=== PATIENT | male | born 1965 | race African-American/Black ===

== ENCOUNTER → 2017-08-13 | Outpatient (CLI) | payer MEDICAID ==
--- NOTE | 2017-08-13 17:31 | RADIOLOGY REPORT (SQ) ---
EXAM DESCRIPTION: CHEST 2 VIEWS COMPLETED DATE/TIME: 08/13/2017 5:23 pm REASON FOR STUDY: J20.9 ACUTE BRONCHITIS, UNSPECIFIED J44.9 CHRONIC OBSTRUCTIVE PULMONARY DIS COMPARISON: 02/09/2013 EXAM PARAMETERS: NUMBER OF VIEWS: two views TECHNIQUE: Digital Frontal and Lateral radiographic views of the chest acquired. RADIATION DOSE: NA LIMITATIONS: none FINDINGS: LUNGS AND PLEURA: Pulmonary vascular congestion. No localized infiltrate or pleural effus ion. MEDIASTINUM AND HILAR STRUCTURES: No masses or contour abnormalities. HEART AND VASCULAR STRUCTURES: Borderline cardiomegaly pulmonary vascular congestion but no gema pul monary edema. BONES: No acute findings. HARDWARE: None in the chest. OTHER: No other significant finding. IMPRESSION: Cardiomegaly with pulmonary vascular congestion but no gema CHF. TECHNICAL DOCUMENTATION: JOB ID: [id number] [employer]- All Rights Reserved Reading location - IP/workstation name: [email or web address]
== END ==
LOC: RAD 16:54
PROVIDERS: ATTEND Nurse Practitioner Family
DX: J20.9 Acute bronchitis, unspecified (principal)
CPT/HCPCS: 71046

== ENCOUNTER 2018-03-30 22:12 | Emergency (ER) | payer MEDICAID ==
[2018-03-30 22:48] LABS: ABSOLUTE EOSINOPHILS # (AUTO) 0.1 10^3/uL (0.0-0.6); ABSOLUTE LYMPHOCYTES (AUTO) 2.2 10^3/uL (0.5-4.7); ABSOLUTE MONOCYTES (AUTO) 0.6 10^3/uL (0.1-1.4); ABSOLUTE NEUT (AUTO) 2.9 10^3/uL (1.7-8.2); BASOPHILS % (AUTO) 0.2 % (0-2); EOSINOPHILS % (AUTO) 2.1 % (0-6); HEMATOCRIT 44.9 % (37.9-51.0); HEMOGLOBIN 14.9 g/dL (13.5-17.0); LYMPHOCYTES % (AUTO) 37.5 % (13-45); MEAN CORPUSCULAR HGB CONC 33.2 g/dL (32.0-36.0); MEAN CORPUSCULAR VOLUME 87 fl (80-97); MONOCYTES % (AUTO) 10.2 % (3-13); PLATELET COUNT 184 10^3/uL (150-450); RED BLOOD COUNT 5.14 10^6/uL (4.35-5.55); RED CELL DISTRIBUTION WIDTH 13.7 % (11.5-14.0); TOTAL CELLS COUNTED % (AUTO) 100 %; WHITE BLOOD COUNT 5.8 10^3/uL (4.0-10.5)
[2018-03-30] MEDS ORDERED: HYDRALAZINE HCL INJ/PF 20 MG/1 ML SDV ONE (22:49)
[2018-03-30 22:50] LABS: INTERNATIONAL RATION (INR) 1.05; PROTHROMBIN TIME 14.3 SEC (11.4-15.4)
[2018-03-30] MEDS ORDERED: ALTEPLASE INJ 100 MG VIAL ONE (22:50)
[2018-03-30 22:59] LABS: ALANINE AMINOTRANSFERASE 26 U/L (21-72); ALBUMIN 4.2 g/dL (3.5-5.0); ALKALINE PHOSPHATASE 143 U/L (38-126); ANION GAP 7 (5-19); ASPARTATE AMINO TRANSFERASE 21 U/L (17-59); BILIRUBIN,DIRECT 0.2 mg/dL (0.0-0.4); BILIRUBIN,TOTAL 1.2 mg/dL (0.2-1.3); BLOOD UREA NITROGEN 6 mg/dL (7-20); CALCIUM 9.4 mg/dL (8.4-10.2); CARBON DIOXIDE 29 mmol/L (22-30); CHLORIDE 101 mmol/L (98-107); GLUCOSE 282 mg/dL (75-110); POTASSIUM 3.7 mmol/L (3.6-5.0); SODIUM 137.1 mmol/L (137-145); TOTAL PROTEIN 7.8 g/dL (6.3-8.2)
--- NOTE | 2018-03-30 23:02 | ER Document Report ---
ED NIH Stroke Scale - NIH Stroke Scale *: 1. NIH scale should be completed with appropriate accompanying assessment tools. *: 2. The NIH should reflect what the patient is capable of doing and should not be coached by the clinician. 1a. Level of Consciousness: 0=Alert;keenly responsive -: 1=Drowsy -: 2=Obtunded -: 3=Coma/unresponsive or reflex to noxious stimuli. 1a. Responses: 0 1b. Orientation Questions: a. What month is it? -: b. How old are you? -: 0=Answers both questions correctly. -: 1=Answers one question correctly or patient is intubated or has orotracheal trauma. -: 2=Answers neither question correctly. 1b. Responses: 0 1c. Response to commands: a. Open and close eyes? -: b. Underpresser Hand and release hand? -: Credit is given despite weakness. Demonstration of task is permitted. Substitute command if hands cannot be used. -: 0=Performs both tasks correctly -: 1=Performs one task correctly -: 2=Performs neither task correctly 1c. Responses: 0 2. Gaze: Establish eye contact and instruct patient to "Follow my finger" -: 0=Normal -: 1=Partial gaze palsy. Gaze is abnormal in one or both eyes, but where forced deviation or total gaze paresis is not present. -: 2=Forced deviation or total gaze paresis. 2. Responses: 0 3. Visual Rosado: Sees fingers in all four quadrants. -: 0=No visual loss. -: 1=Partial hemianopsia. -: 2=Complete hemianopsia. -: 3=Bilateral hemianopsia (including Cortical blindness) 3. Responses: 0 4. Facial Movement: Instruct patient to: -: a. Show me your teeth -: b. Raise your eyebrows -: c. Close your eyes -: d. Smile -: 0=Normal symmetrical movement -: 1=Minor paralysis (flattened nasolabial fold, asymmetry on smiling). -: 2=Partial paralysis (total or near total paralysis of lower face). -: 3=Complete paralysis of upper and lower face 4. Responses: 3 5. Motor functions (left arm): Alternate sides and extend each arm with palms down (90 degrees if sitting or 45 degrees for supine). -: 0=No drift;limb holds for full 10 seconds. -: 1=Drift; limb holds but drifts down before full 10 seconds, but does not hit bed. -: 2=Some effort against gravity; limb cannot get to or maintain position. -: 3=No effort against gravity; limb falls. -: 4=No movement. -: UN=Amputation, joint fusion, explain in comments. 5. Responses (left arm): 4 5. Motor Functions (right arm): Alternate sides and extend each arm with palms down (90 degrees if sitting or 45 degrees for supine). -: 0=No drift;limb holds for full 10 seconds. -: 1=Drift; limb holds but drifts down before full 10 seconds, but does not hit bed. -: 2=Some effort against gravity; limb cannot get to or maintain position. -: 3=No effort against gravity; limb falls. -: 4=No movement. -: UN=Amputation, joint fusion, explain in comments. 5. Responses (right arm): 0 6. Motor Functions (left leg): With patient lying supine, alternate sides and extend each leg (30 degrees always while supine). -: 0=No drift, leg holds position for full 5 seconds -: 1=Drift; leg falls before full 5 seconds but does not hit bed. -: 2=Some effort against gravity, leg falls to bed but some effort against gravity. -: 3=No effort against gravity, leg falls to bed immediately. -: 4=No movement. -: UN=Amputation, joint fusion; explain in comments. 6. Responses (left leg): 4 6. Motor Functions (right leg): With patient lying supine, alternate sides and extend each leg (30 degrees always while supine). -: 0=No drift, leg holds position for full 5 seconds -: 1=Drift; leg falls before full 5 seconds but does not hit bed. -: 2=Some effort against gravity, leg falls to bed but some effort against gravity. -: 3=No effort against gravity, leg falls to bed immediately. -: 4=No movement. -: UN=Amputation, joint fusion; explain in comments. 6. Responses (right leg): 0 7. Limb Ataxia: With eyes open instruct patient to: -: a. "Touch your finger to your nose". -: b. "Touch your heel to your cervantes" -: 0=Absent -: 1=Present in one limb. -: 2=Present in two limbs. -: UN=Amputation or joint fusion; explain in comments. 7. Responses: 2 8. Sensory: Test sensation using pinprick or noxious stimuli. Test as many body parts as possible. -: 0=Normal;no sensory loss -: 1=Mile to moderate sensory loss (patient feels pin prick but is less sharp on affected side). -: 2=Severe or total sensory loss. 8. Responses: 1 9. Best Language: Instruct patient to: -: a. "Describe what you see in this picture." -: b. "Name the items in this picture." -: c. "Read these sentences." -: 0=No aphasia, normal -: 1=Mild to moderate aphasia. -: 2=Severe aphasia -: 3=Mute, global aphasia, no usable speech or auditory comprehension. 9. Responses: 1 10. Articulation, Dysarthia: Instruct patient to: -: "Read these words" or "Repeat these words" -: 0=Normal -: 1=Mild to moderate; patient may slur some words but can be understood without difficulty. -: 2=Severe; patients speech so slurred as to be unintelligible in the absence of dysphasia. -: UN=Intubated or other physical barrier, explain in comments. 10. Responses: 1 11. Extinction or inattention: 0=No abnormality -: 1= Visual, tactile, auditory, spatial, or personal inattention or extinction to bilateral simulation in one or the sensory modalities. -: 2=Profound kallie-inattention or kallie-inattention to more than one modality; does not recognize own hand. 11. Responses: 0 Total Score: 16
--- NOTE | 2018-03-30 23:06 | RADIOLOGY REPORT (SQ) ---
EXAM DESCRIPTION: XR CHEST 1 VIEW COMPLETED DATE/TME: 03/30/2018 22:13 CLINICAL HISTORY: 53 years, Male, stroke like symptoms EXAM DESCRIPTION: CLINICAL HISTORY: stroke like symptoms COMPARISON: None. FINDINGS: Single view of the chest is submitted. Cardiac silhouette is mildly enlarged. There is mild bilateral pulmonary edema. No focal consolidation. IMPRESSION: Cardiomegaly and mild pulmonary edema suggest CHF.
--- NOTE | 2018-03-30 23:06 | RADIOLOGY REPORT (SQ) ---
EXAM DESCRIPTION: CT HEAD WITHOUT IV CONTRAST COMPLETED DATE/TME: 03/30/2018 22:13 CLINICAL HISTORY: 53 years, Male, altered mental status This exam was performed according to our departmental dose-optimization program which includes automated exposure control, adjustment of the mA and/or kVp according to patient size and/or use of iterative reconstruction technique where applicable. FINDINGS: No acute intracranial hemorrhage, mass effect or midline shift. No extra-axial fluid collections. Ventricles and subarachnoid spaces are preserved. Mckeon-white matter differentiation is preserved. Visualized paranasal sinuses and the mastoid air cells are clear. The skull is intact. IMPRESSION: No acute intracranial hemorrhage.
--- NOTE | 2018-03-30 23:10 | ER Document Report ---
ED General - General Chief Complaint: S/S of Possible Stroke Stated Complaint: STROKE LIKE SYMPTOMS Time Seen by Provider: 03/30/18 22:13 Notes: Patient is a 53-year-old male who had sudden onset of left-sided weakness that began at 8:51 PM when he was playing with his grandchildren. He denies headache. He denies fevers. Denies vomiting. He denies any other symptoms other than the weakness in the left side. He denies previous history of stroke. He denies any recent trauma or surgeries. He denies history of brain bleeding. Patient says that he supposed to take a blood thinner but has not taken in 6 months. Does not member the name of it. His did come by with his medications and the blood thinner Xarelto but the patient has not taken this in 6 months. He supposed to be on this due to her history of atrial fibrillation. He has a history of hypertension and diabetes as well. Patient did take aspirin when his symptoms started. TRAVEL OUTSIDE OF THE [place] IN LAST 30 DAYS: No - Related Data Allergies/Adverse Reactions: No Known Allergies Allergy (Verified 04/11/12 22:04) Past Medical History - Social History Smoking Status: Unknown if Ever Smoked Frequency of alcohol use: None Drug Abuse: None Family History: Reviewed & Not Pertinent - Past Medical History Cardiac Medical History: Reports: Hx Hypertension Endocrine Medical History: Reports: Hx Diabetes Mellitus Type 2 Past Surgical History: Reports: Hx Abdominal Surgery - Immunizations Hx Diphtheria, Pertussis, Tetanus Vaccination: Yes Review of Systems - Review of Systems Notes: My Normal Review Basic REVIEW OF SYSTEMS: CONSTITUTIONAL : Denies fever, chills, or sweats. Denies recent illness. EENT: Denies eye, ear, throat, or mouth pain or symptoms. Denies nasal or sinus congestion. CARDIOVASCULAR: Denies chest pain. RESPIRATORY: Denies cough, cold, or chest congestion. Denies shortness of breath, difficulty breathing, or wheezing. GASTROINTESTINAL: Denies abdominal pain. Denies nausea, vomiting, or diarrhea. Denies constipation. Last BM: MUSCULOSKELETAL: Denies neck or back pain or joint pain or swelling. SKIN: Denies rash or skin lesions. HEMATOLOGIC : Denies easy bruising or bleeding. NEUROLOGICAL: Denies altered mental status or loss of consciousness. Denies headache. Left-sided weakness. Left-sided facial droop. Slurred speech. ALL OTHER SYSTEMS REVIEWED AND NEGATIVE. Physical Exam - Vital signs Vitals: Temp Pulse Ox 98.1 F 100 03/30/18 22:18 03/30/18 22:18 - Notes Notes: General Appearance: Well nourished, alert, cooperative, no acute distress, no obvious discomfort. Vitals: reviewed, See vital signs table. Head: no swelling or tenderness to the head Eyes: PERRL, EOMI, Conjuctiva clear Mouth: No decreasd moisture Throat: No tonsillar inflammation, No airway obstruction, No lymphadenopathy Lungs: No wheezing, scattered rales, No rhonci, No accessory muscle use, good air exchange bilaterally. Heart: Normal rate, Regular rythm, No murmur, no rub Abdomen: Normal BS, soft, No rigidity, No abdominal tenderness, No guarding, no rebound, no abdominal masses, no organomegaly Extremities: strength 5/5 in all extremities, good pulses in all extremities, no swelling or tenderness in the extremities, no edema. Skin: warm, dry, appropriate color, no rash Neuro: Speech is garbled but I cannot understand what he saying. Does have significant left-sided facial droop. He has passive paralysis of the left upper extremity left lower extremity. He has slight diminishment sensation. Right upper extremity and lower extremity have normal motor function. Gait not tested. Course - Re-evaluation Re-evalutation: 03/31/18 00:03 Patient is now on the transport teams stretcher to be transferred. On reevalu ation he continues to have flaccid paralysis of the left side. He has good strength on the right side. Still able answer questions. Blood pressure did drop and therefore Cardene drip was stopped. I informed the travel team to only restart Cardene if his blood pressure approaches 200 systolic to try to keep it above 180. Patient is stable for transfer. 03/31/18 01:49 - Vital Signs Vital signs: Temp Pulse Resp BP Pulse Ox 98.1 F 97 30 H 147/93 H 99 03/30/18 23:16 03/31/18 00:16 03/31/18 00:16 03/31/18 00:16 03/31/18 00:16 - Laboratory Result Diagrams: 03/30/18 22:35 03/30/18 22:35 Laboratory results interpreted by me: 03/30/18 03/30/18 22:35 22:46 BUN 6 L Glucose 282 H POC Glucose 250 H Alkaline Phosphatase 143 H - EKG Interpretation by Me Additional EKG results interpreted by me: 03/30/18 23:07 EKG is reviewed and interpreted by me. EKG shows atrial fibrillation with a rate of [address] segment elevation. He has some inversions in the lateral leads which are consistent with his previous EKG from February 09, 2013. QRS duration is within normal range. QT interval is prolonged. - Transfer of Care Notes: 03/30/18 23:08 I immediately saw the patient as soon as he arrived. We obtained a CT scan which does not show signs of bleeding. Discussion patient about Tpa has been initiated, but patient wants to discuss further with family. Reviewed the CT scan I do not see any evidence of intracranial bleeding. We did want to bedside as the patient is within the window for thrombolytics. I spoke with him several times about thrombolytics. I also spoke with his family. I have spoken with his as well as his daughters and sons. They all have differing opinions on the medication. His has gone back and forth. The patient himself does not want to make a decision on this says that he wants his to make the decision. She has told me yes once but most recently has now told me no. I have called [facility] to speak with a neurologist in the morning and and am waiting to hear back. I did go over all the risks and benefits of giving the medication with the patient and the family. I used the [facility] TPA stroke diagram to give a visual representation of the risks and benefits of the TPA to try to make this as easy to understand as possible. His diastolic blood pressure is a bit high and therefore we have given hydralazine to help reduce the diastolic pressure. Patient currently is in A. fib. Patient does have a history of previous atrial fibrillation per the family. He supposed be on Xarelto but the patient says he does not taken this in 6 months. He has a bottle of Xarelto that has 16 out of 30 tablets left and it was filled on April 17 of last year. 03/30/18 23:[address] Godfrey, neurologist, who says that be happy to accept him as a code stroke. As if the patient refuses TPA then we can just give him an aspirin and placed him on a Cardene drip to keep blood pressure around 200 systolic. Several further with her family members. They are still having very hard time to make their decision. I spoke with brother, , several of his children. I still am not getting a clear decision. 03/30/18 23:40 Patient has now agreed to the TPA. Patient was just given the TPA. Is on Cardene drip to help control blood pressure. 03/30/18 23:46 Prior to TPA being given patient said he was started have some pain in his extremities. I therefore gave him a small dose of morphine but the morphine was not given until after the patient and family consented and made the final decision of the receiving TPA as I did not want the medication to affect his judgment. 03/31/18 01:50 Critical Care Note - Critical Care Note Total time excluding time spent on procedures (mins): 60 Comments: Critical care time for this patient including time spent on procedures approximately 60 minutes due to treatment of acute stroke with ongoing conversations with family and patient about TPA usage and administration of TPA and frequent neurologic evaluations. Discharge - Discharge Clinical Impression: Stroke Condition: Stable Disposition: [facility]
[2018-03-30] MEDS ORDERED: NICARDIPINE HCL RTU, ISO-OS 20 MG/200 ML RTUINJ IV PRN (23:20)
[2018-03-30] MEDS ORDERED: MORPHINE SULFATE 10 MG/ML INJ ONE (23:39)
[2018-03-30] MEDS ORDERED: FUROSEMIDE INJ/PF 20 MG/2 ML SDV IV ONE (23:41)
[2018-03-31 00:05] VITALS: BP 147/93
--- NOTE | 2018-03-31 00:12 | EKG REPORT ---
SEVERITY:- ABNORMAL ECG - A FIB BORDERLINE LEFT AXIS DEVIATION ABNORMAL T, CONSIDER ISCHEMIA, LATERAL LEADS PROLONGED QT INTERVAL : Confirmed by: Sandeep Falk 31-Mar-2018 00:11:35
== END 2018-03-31 00:05 | disposition short-term general hospital (02) ==
LOC: ER 22:12
DX: I63.9 Cerebral infarction, unspecified (principal); R53.1 Weakness; I10 Essential (primary) hypertension; E11.9 Type 2 diabetes mellitus without complications
CPT/HCPCS: 93005; 99291; 96375; 96365; 96368; 36415; 82962; 85025; 85610; 85730; 80053; 84484; 71045; 70450; 93010; J1940; J0360; J2270; J2997; J3490

== ENCOUNTER → 2019-08-04 | Outpatient (CLI) | payer MEDICAID ==
--- NOTE | 2019-08-04 14:05 | RADIOLOGY REPORT (SQ) ---
EXAM DESCRIPTION: CHEST 2 VIEWS IMAGES COMPLETED DATE/TIME: 08/04/2019 1:56 pm REASON FOR STUDY: R05 COUGH COMPARISON: 03/30/2018 EXAM PARAMETERS: NUMBER OF VIEWS: two views TECHNIQUE: Digital Frontal and Lateral radiographic views of the chest acquired. RADIATION DOSE: NA LIMITATIONS: none FINDINGS: LUNGS AND PLEURA: Mild perihilar and bilateral interstitial airspace disease. Small right effusion. MEDIASTINUM AND HILAR STRUCTURES: No masses or contour abnormalities. HEART AND VASCULAR STRUCTURES: Heart is enlarged with central vascular prominence. BONES: No acute findings. HARDWARE: None in the chest. OTHER: No other significant finding. IMPRESSION: Findings are consistent with vascular congestion slightly worse than noted in April 05. TECHNICAL DOCUMENTATION: JOB ID: [id number] 2010 [employer]- All Rights Reserved Reading location - IP/workstation name: [email or web address]
== END ==
LOC: RAD 13:45
PROVIDERS: ATTEND Nurse Practitioner Family
DX: R05 Cough (principal)
CPT/HCPCS: 71046